=== PATIENT | female | born 1960 | race Caucasian/White ===

== ENCOUNTER 2016-09-08 08:51 | Day surgery (SDC) | payer OTHER ==
[2016-09-08] VITALS (13 sets, daily range): BP systolic 96–136; BP diastolic 51–73; PULSE 64–80; RESP 12–23; Ht 165.1 cm; Wt 91.0 kg
[~2016-09-08] VITALS: Ht 165.1 cm; Wt 91.0 kg
[~2016-09-08 08:51] MED LIST: ESCI10TA PO; LEVO100T11 PO; SOD CHLORIDE 0.9% 1,000 ML IV SCH; TRAM50TA2 PO; [UNRECOGNIZED DRUG - CODE] PO; [UNRECOGNIZED DRUG - CODE] PO; [UNRECOGNIZED DRUG - OTHER]
[2016-09-08 10:36] LABS: ADD SCAN DIFF NO
[2016-09-08 10:42] LABS: BASOPHILS % 0.4 % (0.0-2.0); EOSINOPHILS # 0.2 10^3/ul (0.0-0.5); EOSINOPHILS % 2.3 % (0.0-7.0); HEMATOCRIT 36.5 % (37.0-47.0); HEMOGLOBIN 12.6 g/dl (12.0-16.0); LYMPHOCYTES # 2.3 10^3/ul (0.8-2.9); LYMPHOCYTES % 30.8 % (15.0-51.0); MEAN CORPUSCULAR HEMOGLOBIN 31.3 pg (29.0-33.0); MEAN CORPUSCULAR HGB CONC 34.5 g/dl (32.0-37.0); MEAN CORPUSCULAR VOLUME 90.8 fl (82.0-101.0); MONOCYTE # 0.5 10^3/ul (0.3-0.9); MONOCYTES % 6.2 % (0.0-11.0); NEUTROPHIL # 4.4 10^3/ul (1.6-7.5); NEUTROPHILS % 59.9 % (39.0-77.0); PLATELET COUNT 231 10^3/UL (140-415); RED BLOOD COUNT 4.02 10^6/ul (4.20-5.40); RED CELL DISTRIBUTION WIDTH 13.5 % (11.5-14.5); WHITE BLOOD COUNT 7.3 10^3/ul (4.8-10.8)
--- NOTE | 2016-09-08 10:52 | RADRPT ---
PROCEDURE: XR Chest. CLINICAL INDICATION: Preoperative, umbilical hernia TECHNIQUE: Single frontal view of the chest was obtained COMPARISON: 06/21/2013 FINDINGS: The heart and mediastinum are within normal limits. The lungs are clear. There is no pleural effusion or pneumothorax. RPTAT: AA IMPRESSION: No acute disease. .Curtis Beasley MD, MD Date Time Electronically viewed and signed by .Curtis Beasley MD, on 09/08/2016 10:51 .S/
[2016-09-08] MEDS ORDERED: PROPOFOL 20 ML ONE (10:59)
[2016-09-08] MEDS ORDERED: ROCURONIUM 50 MG INJ ONE (10:59)
[2016-09-08] MEDS ORDERED: CEFAZOLIN 1 GM INJ ONE (10:59)
[2016-09-08] MEDS ORDERED: MIDAZOLAM 1 MG/ML 2 ML INJ ONE (10:59)
[2016-09-08] MEDS ORDERED: ROPIVACAINE 0.2% 20 ML VIAL ONE (10:59)
[2016-09-08] MEDS ORDERED: FENTAnyl 50 MCG/ML VIAL ONE ×2 (10:59→12:13)
[2016-09-08] MEDS ORDERED: POLYMYXIN/BACITRACIN 1L IRRIG ONE (11:04)
[2016-09-08] MEDS ORDERED: CALC500T11 PO (11:14)
[2016-09-08] MEDS ORDERED: ALLO300T2 PO (11:14)
[2016-09-08] MEDS ORDERED: NAPR-688 PO (11:14)
[2016-09-08] MEDS ORDERED: LORA10TA3 PO (11:14)
[2016-09-08] MEDS ORDERED: ESCI20TA38 PO (11:16)
[2016-09-08] MEDS ORDERED: ESCI10TA48 PO (11:16)
[2016-09-08] MEDS ORDERED: PHENYLephrine (100 MCG/ML) 5ML SYG ONE (11:29)
[2016-09-08] MEDS ORDERED: METOCLOPRAMIDE 10 MG INJ ONE (11:53)
[2016-09-08] MEDS ORDERED: DEXAMETHASONE 4 MG/ML 1 ML INJ ONE (11:53)
[2016-09-08] MEDS ORDERED: ONDANSETRON 4 MG INJ ONE ×2 (11:53→12:13)
[2016-09-08] MEDS ORDERED: GLYCOPYRROLATE 0.4 MG INJ ONE (11:53)
[2016-09-08] MEDS ORDERED: NEOSTIGMINE 3 MG/3 ML SYRINGE ONE (11:53)
[2016-09-08 11:55] LABS: ALBUMIN 4.4 g/dl (3.3-4.9)
[2016-09-08 11:57] LABS: BILIRUBIN,INDIRECT 0.4 mg/dl (0-1.1); BILIRUBIN,TOTAL 0.4 mg/dl (0.2-1.3); CREATININE 0.68 mg/dl (0.44-1.00)
[2016-09-08 11:58] LABS: ALBUMIN/GLOBULIN RATIO 1.37; TOTAL PROTEIN 7.6 g/dl (6.1-8.1)
[2016-09-08] MEDS ORDERED: ONDANSETRON 4 MG INJ IV PRN (12:00)
[2016-09-08] MEDS ORDERED: LABETALOL HCL 20MG INJ IV PRN (12:00)
[2016-09-08] MEDS ORDERED: FENTAnyl 50 MCG/ML VIAL IV PRN ×3 (12:00)
[2016-09-08] MEDS ORDERED: hydrALAzine 20 MG INJ IV PRN (12:00)
[2016-09-08] MEDS ORDERED: EPHEDrine SULFATE 50 MG/5 ML SYG IV PRN (12:00)
[2016-09-08] MEDS ORDERED: DIPHENHYDRAMINE 50 MG INJ IV PRN (12:00)
[2016-09-08] MEDS ORDERED: METOCLOPRAMIDE 10 MG INJ IV PRN (12:00)
[2016-09-08 12:02] LABS: INR 1.01; PROTIME 13.3 Sec (12.2-14.2)
[2016-09-08 12:03] LABS: PARTIAL THROMBOPLASTIN TIME 29.4 Sec (25.0-35.0)
--- NOTE | 2016-09-08 12:28 | OPR ---
DATE OF OPERATION: 09/08/2016 PREOPERATIVE DIAGNOSIS: Incarcerated ventral/umbilical hernia. POSTOPERATIVE DIAGNOSIS: Incarcerated ventral/umbilical hernia. PROCEDURE PERFORMED: Repair of incarcerated ventral/umbilical hernia. SURGEON: Maik Martin MD CREATIVE TECHNOLOGIST: None. ANESTHESIA: General anesthesia. ANESTHESIOLOGIST: Haroldo Camp MD INDICATIONS FOR PROCEDURE: The patient is a 56-year-old female who presented with a symptomatic inc arcerated hernia extending from a point above her umbilicus into her umbilicus. She was counseled a s to the risks versus benefits of repair. She consented and was scheduled for surgery. DESCRIPTION OF PROCEDURE: The patient was brought to the operating theater, placed under general en dotracheal tube anesthesia. The abdomen was shaved, prepped and draped in the usual sterile fashion . A midline incision was made from a point approximately 3 cm above the umbilicus down and around t he left side of the umbilicus. It was then carried out with a 15 blade scalpel. Subcutaneous tissu e was dissected with cautery. In the subcutaneous space, a relatively large hernia sac was identifi ed. It was dissected down to its base. It was opened and found to contain omentum. The sac and at tached omentum were transected with the LigaSure device and sent for permanent pathologic analysis. Dr. Martin inspected the defect and deemed it suitable for primary repair. It was repaired with mul tiple 0 Prolene sutures in [id number] fashion. The wound was irrigated. Minimal bleeding was controlled with cautery, and the skin was then reapproximated with skin chhaya. The patient tolera wallace the procedure well. The estimated blood loss was 5 mL. There were no complications and the pat ient was transported in stable condition to the recovery room. Dictated By: MAIK URIBE/JORJE Conf#: [id number] DID#: [id number]
[2016-09-08] MEDS ORDERED: traMADol-APAP 37.5-325 1 TAB PO ONE (13:00)
[2016-09-08] MEDS ORDERED: traMADol 50 MG TAB PO ONE (13:00)
--- NOTE | 2016-09-09 18:15 | RADRPT ---
Vent Rate: 71 bpm RR Interval: 0 msec NH Interval: 166 msec QRS Duration: 90 msec QT Interval: 444 msec QTC Interval: 482 msec P-R-T [place]: 18 - 55 - 46 degrees Normal sinus rhythm RSR apos; orattern in V1 suggests right ventricular conduction delay Prolonged QT Abnormal ECG Electronically Signed By: Joo Yarbrough [id number]
== END 2016-09-08 14:00 | disposition home or self-care (01) ==
LOC: SDS 08:51
PROVIDERS: ATTEND Surgery Surgical Oncology
DX: K42.0 Umbilical hernia with obstruction, without gangrene (principal); E03.9 Hypothyroidism, unspecified; E66.9 Obesity, unspecified; Z68.33 Body mass index [BMI] 33.0-33.9, adult
CPT/HCPCS: 49587; 71010; 80053; 85025; 85610; 85730; 88302; 93005; J0690; J2250; J2405; J2710; J2795; J3010; J7030; Z7512; Z7610; J1100; J2370; J2765